=== PATIENT | female | born 1995 | race Caucasian/White ===

== ENCOUNTER → 2025-06-11 13:08 | Outpatient (REF) | payer OTHER, SELFPAY | LOC: RAD 13:08 | PROVIDERS: ATTENDING PHYSICIAN Physician Assistant Medical | DX: S06.0X0D Concussion without loss of consciousness, subsequent encounter (principal) | CPT/HCPCS: 70450 ==

== ENCOUNTER 2025-06-21 15:42 | Emergency (ER) | payer BC, SELFPAY ==
[2025-06-21 15:48] VITALS: BP 163/97
[2025-06-21 16:09] LABS: Hematocrit 40.4 % (37.0-47.0); Hemoglobin 13.8 g/dL (12.0-16.0); Mean Corp Hgb Conc. 34.2 g/dL (33.0-37.0); Mean Corpuscular Volume 90.6 fL (81.0-99.0); Nucleated Red Blood Cells % 0 %; Platelet Count 257 10^3/uL (130-400); Red Cell Dist. Width 12.6 % (11.5-14.5)
[2025-06-21 16:21] LABS: HCG, Serum Qualitative Screen Negative
[2025-06-21 16:28] LABS: ALT (SGPT) 87 U/L (0-35); AST (SGOT) 130 U/L (14-36); Albumin 5.2 g/dl (3.5-5.0); Alkaline Phosphatase 70 U/L (38-126); Blood Urea Nitrogen 16 mg/dl (7-17); Calcium 10.4 mg/dl (8.4-10.2); Carbon Dioxide 27 mmol/L (22-30); Chloride 101 mmol/L (98-107); Glucose 89 mg/dl (70-99); Lipase 125 U/L (23-300); Potassium 4.1 mmol/L (3.5-5.1); Sodium 137 mmol/L (135-145); Total Protein 8.4 g/dl (6.3-8.2); eGFR > 60.00
[2025-06-21 17:12] LABS: Urine Character Clear (Clear)
[2025-06-21 17:17] LABS: Urine Squamous Cell 26-30 /LPF (Few)
[2025-06-21 17:18] LABS: Urine Red Blood Cell 0-2 /HPF (0-2)
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
[2025-06-21 18:00] VITALS: BP 142/78
[2025-06-21] MEDS: TORADOL 15 MG IV (18:01)
[2025-06-21] MEDS: NSS 1000 IV (18:04)
[2025-06-21] MEDS: TYLENOL 1000 MG PO (21:37)
[2025-06-21 21:38] VITALS: BP 131/81
== END 2025-06-21 22:25 | disposition home or self-care (01) ==
LOC: EMR 15:42
PROVIDERS: Emergency Medicine; EMERGENCY PHYSICIAN Emergency Medicine; FAMILY PHYSICIAN Family Medicine
DX: R10.13 Epigastric pain (principal); E28.2 Polycystic ovarian syndrome
CPT/HCPCS: 99284; 96374; 96361; 74177; 80053; 81003; 81015; 83690; 84703; 85025; 87077; 87086; 87147; Q9967

== ENCOUNTER → 2025-07-14 10:13 | Outpatient (REF) | payer OTHER, SELFPAY | LOC: HWRAD 10:13 | PROVIDERS: ATTENDING PHYSICIAN Nurse Practitioner Family; FAMILY PHYSICIAN Family Medicine | DX: N92.6 Irregular menstruation, unspecified (principal) | CPT/HCPCS: 76830; 76856 ==

== ENCOUNTER → 2025-07-20 07:25 | Outpatient (REF) | payer OTHER, SELFPAY | LOC: HWRAD 07:25 | PROVIDERS: ATTENDING PHYSICIAN Internal Medicine Gastroenterology; FAMILY PHYSICIAN Family Medicine | DX: R79.89 Other specified abnormal findings of blood chemistry (principal) | CPT/HCPCS: 76700 ==